=== PATIENT | male | born 1950 | race Hispanic/Latino ===

== ENCOUNTER → 2018-03-10 | Outpatient (CLI) | payer OTHER ==
[~2018-03-10] MED LIST: ALPR1TAB2 PO; AMLO5TAB7 PO; ASPI-555 PO; BETA1TAB20 PO; CYAN100022 SL; GLIP5TAB11 PO; METF-446 PO; NITR0.4T SL; RANI150T7 PO
== END | disposition home or self-care (01) ==
LOC: RAH 10:27
PROVIDERS: ATTEND Family Medicine
DX: S86.012A Strain of left Achilles tendon, initial encounter (principal); X58.XXXA Exposure to other specified factors, initial encounter; Y93.89 Activity, other specified; Y92.89 Other specified places as the place of occurrence of the external cause; Y99.8 Other external cause status
CPT/HCPCS: 73721

== ENCOUNTER 2018-09-03 23:38 | Observation (INO) | payer OTHER ==
[~2018-09-03] VITALS: Ht 170.2 cm; Wt 82.9 kg
[~2018-09-03 23:38] MED LIST changes: -AMLO5TAB7 PO; +AMLO5TAB9 PO
[2018-09-03] MEDS ORDERED: ASPIRIN 325 MG TABLET ONE (23:53)
[2018-09-03 23:59] LABS: BASOPHILS % (AUTO) 0.3 % (0.0-5.0); EOSINOPHILS % (AUTO) 2.2 % (0.0-8.0); HEMATOCRIT 46.6 % (42-54); LYMPHOCYTES % (AUTO) 8.9 % (21.0-51.0); MEAN CORPUSCULAR HEMOGLOBIN 31.5 pg (27.0-33.0); MEAN CORPUSCULAR HGB CONC 34.6 g/dL (32.0-36.0); MONOCYTES % (AUTO) 6.4 % (3.0-13.0); NEUTROPHILS % (AUTO) 82.2 % (40.0-77.0); PLATELET COUNT (AUTO) 119 K/uL (130-400); RED BLOOD CELL COUNT(AUTO) 5.11 MIL/uL (4.50-6.20); RED CELL DISTRIBUTION WIDTH 14.4 % (11.0-15.5); WHITE BLOOD COUNT (AUTO) 6.1 K/uL (4.8-10.8)
[2018-09-04 00:09] LABS: POTASSIUM 3.9 mmol/L (3.5-5.1)
[2018-09-04 00:14] LABS: ALBUMIN 3.4 g/dL (3.5-5.0); BILIRUBIN,TOTAL 0.5 mg/dL (0.2-1.0); TOTAL PROTEIN, SERUM 7.5 g/dL (6.0-8.3)
[2018-09-04] MEDS ORDERED: NITROGLYCERIN 0.4 MG SL TAB SL ONE (00:14)
[2018-09-04 00:23] LABS: INR 0.95 (0.85-1.15); PARTIAL THROMBOPLASTIN TIME 27.8 SEC (26.3-35.5)
[2018-09-04 05:06] LABS: BASOPHILS % (AUTO) 0.5 % (0.0-5.0); EOSINOPHILS % (AUTO) 2.2 % (0.0-8.0); HEMATOCRIT 42.5 % (42-54); LYMPHOCYTES % (AUTO) 9.2 % (21.0-51.0); MEAN CORPUSCULAR HEMOGLOBIN 31.7 pg (27.0-33.0); MEAN CORPUSCULAR HGB CONC 35.2 g/dL (32.0-36.0); MEAN CORPUSCULAR VOLUME 90.1 fL (79-99); MONOCYTES % (AUTO) 5.3 % (3.0-13.0); NEUTROPHILS % (AUTO) 82.8 % (40.0-77.0); PLATELET COUNT (AUTO) 109 K/uL (130-400); RED BLOOD CELL COUNT(AUTO) 4.72 MIL/uL (4.50-6.20); RED CELL DISTRIBUTION WIDTH 14.1 % (11.0-15.5); WHITE BLOOD COUNT (AUTO) 5.6 K/uL (4.8-10.8)
[2018-09-04 05:18] LABS: CREATININE 0.9 mg/dL (0.5-1.5); POTASSIUM 4.5 mmol/L (3.5-5.1)
[2018-09-04] MEDS ORDERED: ACETAMINOPHEN 325 MG TAB ONE ×2 (05:21→12:19)
[2018-09-04 05:29] LABS: CREATINE KINASE, TOTAL 240 U/L (21-232); MYOGLOBIN 118 ng/mL (10-92); TROPONIN I < 0.04 ng/mL (0.00-0.06)
[2018-09-04 05:43] LABS: B-TYPE NATRIURETIC PEPTIDE 40 pg/mL (0-100)
[2018-09-04] MEDS ORDERED: ASPIRIN 81MG TAB.CHEW ONE (09:22)
[2018-09-04] MEDS ORDERED: NITROGLYCERIN 1GM/1 INCH PACKET TD ONE (09:22)
[2018-09-04] MEDS ORDERED: METOPROLOL TARTRATE 25 MG TAB ONE (09:23)
[2018-09-04] MEDS ORDERED: SULF1TAB42 PO (10:38)
[2018-09-04] MEDS ORDERED: METO25TA6 PO (10:38)
[2018-09-04] MEDS ORDERED: MUPI22OI2 TP (10:39)
[2018-09-04] MEDS ORDERED: CEFTRIAXONE SODIUM 1 GM ONE (14:21)
[2018-09-04 15:00] VITALS: BP 121/72
[2018-09-04] MEDS ORDERED: RANI150T7 PO (15:47)
[2018-09-04 15:59] VITALS: BP 120/78
[2018-09-04] MEDS ORDERED: NITROGLYCERIN 0.4 MG SL TAB SL PRN (16:00)
--- NOTE | 2018-09-04 16:16 | NUR ---
SPOKE WITH MARIANELA RESTREPO PA-C AND INFORMED HIM OF PATIENT'S ARRIVAL TO FLOOR.
[2018-09-04] MEDS: METFORMIN HCL 500 MG TABLET PO SCH (16:26)
[2018-09-04] MEDS ORDERED: GLUCAGON 1MG KIT 1 MG ML IM PRN (16:45)
[2018-09-04] MEDS ORDERED: DEXTROSE 50%-WATER 50 ML DISP.SYRIN IV PRN (16:45)
[2018-09-04 17:49] LABS: CHOLESTEROL 104 mg/dL (<200); HDL CHOLESTEROL 28 mg/dL (29-71); LDL DIRECT 57 mg/dL (0-99); TRIGLYCERIDES 128 mg/dL (30-200)
[2018-09-04] MEDS ORDERED: INSULIN HUMULIN R 100 UNIT/ML 3ML SQ SCH (18:00)
[2018-09-04] MEDS ORDERED: NITROGLYCERIN 1GM/1 INCH PACKET TD SCH (18:00)
[2018-09-04 19:40] VITALS: BP 131/80
[2018-09-04] MEDS ORDERED: REGADENOSON 0.4 MG/5 ML PF SYG IVP SCH (19:45)
[2018-09-04] MEDS: ATORVASTATIN CALCIUM 10 MG TABLET PO SCH (21:00)
[2018-09-04] MEDS ORDERED: INSULIN R PO SS1 SQ SCH (21:00)
--- NOTE | 2018-09-04 22:10 | NUR ---
REMINDED PATIENT NPO AFTER MIDNIGHT, STRESS TEST IN A.M. PATIENT VERBALIZED UNDERSTANDING.
[2018-09-04] MEDS: SULFAMETHOX-TMP DS 800/160 TAB PO SCH (22:30)
[2018-09-04] MEDS: MUPIROCIN OINTMENT 22 GM TUBE TP SCH (22:31)
[2018-09-04] MEDS: RANITIDINE HCL 15 MG/1 ML PO SCH (22:31)
[2018-09-04] MEDS: METOPROLOL TARTRATE 25 MG TAB PO SCH (22:31)
[2018-09-04 23:34] VITALS: BP 151/91
[2018-09-05] MEDS: CEFTRIAXONE SODIUM 1 GM IVP SCH ×2 (03:39→17:07)
[2018-09-05 03:40] VITALS: BP 127/83
[2018-09-05 07:45] VITALS: BP 154/93
[2018-09-05] MEDS: GLIPIZIDE XL 5MG TAB PO SCH (07:46)
[2018-09-05] MEDS: METFORMIN HCL 500 MG TABLET PO SCH ×3 (07:46→17:08)
[2018-09-05] MEDS: METOPROLOL TARTRATE 25 MG TAB PO SCH ×2 (07:50→20:59)
[2018-09-05] MEDS: SULFAMETHOX-TMP DS 800/160 TAB PO SCH ×2 (11:32→20:58)
[2018-09-05] MEDS: RANITIDINE HCL 15 MG/1 ML PO SCH ×2 (11:32→20:57)
[2018-09-05] MEDS: MUPIROCIN OINTMENT 22 GM TUBE TP SCH ×3 (11:33→22:59)
[2018-09-05] MEDS: ASPIRIN 81 MG EC TAB PO SCH (11:33)
[2018-09-05 11:51] VITALS: BP 154/94
--- NOTE | 2018-09-05 13:13 | NUR ---
DC PLAN VISITED WITH PATIENT. PATIENT LIVES ALONE. INDEPENDENT ABLE TO PERFORM ADL'S. PATIENT HAS NO SERVICES OR DME'S. FEELS SAFE TO RETURN HOME. Addendum: 09/05/18 at 1314 by KHOI CERON RN CM Amended: Links added.
[2018-09-05 15:44] VITALS: BP 148/74
--- NOTE | 2018-09-05 15:54 | NUR ---
SPOKE WITH DR. BEARD WHO READ SADI AND SAID THAT TEST IS NORMAL.
[2018-09-05] MEDS ORDERED: ACETAMINOPHEN 325 MG TAB ONE (17:59)
[2018-09-05] MEDS ORDERED: ACETAMINOPHEN 325 MG TAB PO PRN (18:00)
[2018-09-05] MEDS ORDERED: PHARMACY COMMUNICATION MISC SCH (18:15)
[2018-09-05 19:00] VITALS: BP 129/86
[2018-09-05] MEDS: CEFEPIME HCL 1 GM VIAL IVP SCH (20:57)
[2018-09-05] MEDS: DOXYCYCLINE HYCLATE 100 MG TABLET PO SCH (20:58)
[2018-09-05] MEDS: ATORVASTATIN CALCIUM 10 MG TABLET PO SCH (20:58)
[2018-09-05 23:00] VITALS: BP 110/73
[2018-09-06 03:00] VITALS: BP 132/83
[2018-09-06] MEDS: CEFEPIME HCL 1 GM VIAL IVP SCH ×2 (04:17→11:23)
[2018-09-06 07:33] VITALS: BP 118/74
[2018-09-06] MEDS: DOXYCYCLINE HYCLATE 100 MG TABLET PO SCH (08:13)
[2018-09-06] MEDS: SULFAMETHOX-TMP DS 800/160 TAB PO SCH (08:13)
[2018-09-06] MEDS: RANITIDINE HCL 15 MG/1 ML PO SCH (08:13)
[2018-09-06] MEDS: METOPROLOL TARTRATE 25 MG TAB PO SCH (08:14)
[2018-09-06] MEDS: ASPIRIN 81 MG EC TAB PO SCH (08:14)
[2018-09-06] MEDS: METFORMIN HCL 500 MG TABLET PO SCH (08:14)
[2018-09-06] MEDS: GLIPIZIDE XL 5MG TAB PO SCH (08:14)
[2018-09-06 09:41] LABS: ALBUMIN 3.1 g/dL (3.5-5.0); BILIRUBIN,DIRECT 0.9 mg/dL (0.0-0.3); BILIRUBIN,TOTAL 1.6 mg/dL (0.2-1.0); TOTAL PROTEIN, SERUM 7.4 g/dL (6.0-8.3)
[2018-09-06] MEDS ORDERED: ATOR10 PO (10:13)
[2018-09-06] MEDS ORDERED: METO-409 PO (10:13)
[2018-09-06] MEDS ORDERED: ISOS30TA6 PO (10:13)
[2018-09-06] MEDS: MUPIROCIN OINTMENT 22 GM TUBE TP SCH ×2 (10:20→14:54)
[2018-09-06 11:34] VITALS: BP 153/87
[2018-09-06 15:19] VITALS: BP 140/82
--- NOTE | 2018-09-06 15:24 | NUR ---
GAVE PATIENT DISCHARGE INSTRUCTIONS. UPDATED PATIENT ON FOLLOW UP APPOINTMENTS WITH DR. REILLY AND PCP. PATIENT READY TO GO HOME.
== END 2018-09-06 15:54 | disposition home or self-care (01) ==
LOC: EDH 23:38 → EDHIP 09-04 01:02 → INTOOBSV 09-04 01:02 → 2DH 09-04 14:46
PROVIDERS: ADMIT Internal Medicine; ATTEND Internal Medicine
DX: I25.110 Atherosclerotic heart disease of native coronary artery with unstable angina pectoris (principal); L03.115 Cellulitis of right lower limb; I10 Essential (primary) hypertension; E78.2 Mixed hyperlipidemia; E11.9 Type 2 diabetes mellitus without complications; K76.0 Fatty (change of) liver, not elsewhere classified; N28.9 Disorder of kidney and ureter, unspecified; Z82.49 Family history of ischemic heart disease and other diseases of the circulatory system; Z83.3 Family history of diabetes mellitus; Z72.0 Tobacco use; Z79.899 Other long term (current) drug therapy
CPT/HCPCS: 36415 ×4; 71045 ×2; 76770; 78452; 80048; 80053; 80061; 80076; 82550; 82948 ×10; 83874; 83880; 84484 ×3; 85025 ×2; 85610; 85730; 87040 ×2; 87088; 87804 ×2; 93005; 93017; 96374; 96375; 96376 ×2; 99284; A4218 ×2; A9500 ×2; G0378 ×63; J0692 ×3; J0696 ×2; J2785

== ENCOUNTER → 2019-02-16 | Outpatient (CLI) | payer OTHER ==
[~2019-02-16] MED LIST changes: -ALPR1TAB2 PO; -AMLO5TAB9 PO; +ATOR10 PO; -BETA1TAB20 PO; -CYAN100022 SL; +ISOS30TA6 PO; +METO-409 PO; +MUPI22OI2 TP; +SULF1TAB42 PO
[2019-02-16 13:54] LABS: CREATININE 1.5 mg/dL (0.5-1.5)
== END | disposition home or self-care (01) ==
LOC: LAB 13:03
PROVIDERS: ATTEND Family Medicine
DX: I25.10 Atherosclerotic heart disease of native coronary artery without angina pectoris (principal); I15.0 Renovascular hypertension
CPT/HCPCS: 36415; 82565; 84520

== ENCOUNTER 2019-02-17 08:00 | Day surgery (SDC) | payer OTHER ==
--- NOTE | 2019-02-17 08:50 | NUR ---
PATIENT ARRIVED PATIENT BROUGHT TO DAY PATIENT FROM RADIOLOGY BY GERMAINE. PATIENT ACCOMPANIED BY SPOUSE. PATIENT AAOX3, RESPIRATIONS UNLABORED, VITAL SIGNS STABLE. EXPLAINED TO THAT HE WILL BE RECEIVING IV HYDRATION FOR [address] SCAN WILL BE DONE. PATIENT VERBALIZED UNDERSTANDING. ORIENTED TO HOSPITAL ROUTINE. BED IN LOWEST POSITION, SIDERAILS UP X2, CALL LIVE IN REACH.
[2019-02-17 09:00] VITALS: BP 142/85
[2019-02-17] MEDS ORDERED: SODIUM CHLORIDE 0.9% 1000ML 1,000 ML IV SCH (09:00)
[2019-02-17] MEDS ORDERED: SODIUM CHLORIDE 0.9% 1000ML 1,000 ML IV ONE (09:33)
[2019-02-17] MEDS ORDERED: IOHEXOL 350 MG/ML 100ML INFUS..BTL IV ONE (09:50)
[2019-02-17 10:00] VITALS: BP 135/78
--- NOTE | 2019-02-17 10:30 | NUR ---
PATIENT TRANSFERRED PATIENT TAKEN TO RADIOLOGY VIA WHEELCHAIR BY
--- NOTE | 2019-02-17 11:05 | NUR ---
patient returned PATIENT BROUGHT BACK FROM RADIOLOGY BY GERMAINE. PATIENT AAOX3, VITAL SIGNS STABLE. AT BEDSIDE.
--- NOTE | 2019-02-17 14:05 | NUR ---
DISCHARGE INSTRUCTIONS DISCHARGE INSTRUCTIONS PROVIDED TO PATIENT AND PATIENT'S SPOUSE. BOTH VERBALIZED UNDERSTANDING. ALL QUESTIONS/CONCERNS ADDRESSED.
--- NOTE | 2019-02-17 14:15 | NUR ---
PATIENT DISCHARGED PATIENT DISCHARGED FROM FACILITY, PATIENT TAKEN TO PRIVATE VEHICLE VIA WHEELCHAIR BY NATHAN CARLOS.
== END 2019-02-17 14:15 ==
LOC: DAH 08:00 → EDSTATUS 08:00 → DAH 14:15
PROVIDERS: ATTEND Internal Medicine Cardiovascular Disease
DX: I15.0 Renovascular hypertension (principal); I25.10 Atherosclerotic heart disease of native coronary artery without angina pectoris; K40.20 Bilateral inguinal hernia, without obstruction or gangrene, not specified as recurrent
CPT/HCPCS: 74174; A4215; A4216; A4221; A4222; A4223 ×3; A4606; J7030; Q9967; 96360; 96361

== ENCOUNTER → 2020-02-25 | Outpatient (CLI) | payer OTHER ==
[~2020-02-25] MED LIST changes: +ACET-2743 PO; +AMLO5TAB9 PO; +ASCO500C18 PO; -ASPI-555 PO; +ASPI-556 PO; -ATOR10 PO; +CALC-1017 PO; +CLON0.2T PO; +CLOTRIMAZOLE SD; +CYAN500T63 PO; +DEXT1DRO8 OU; +FLUT15.845 NS; -ISOS30TA6 PO; +LOSA50TA64 PO; +MULT-30 PO; -MUPI22OI2 TP; -RANI150T7 PO; -SULF1TAB42 PO; +VIT1CAPS28 PO
== END | disposition home or self-care (01) ==
LOC: WHH 09:00
PROVIDERS: ATTEND Surgery
DX: T81.89XA Other complications of procedures, not elsewhere classified, initial encounter (principal); L97.821 Non-pressure chronic ulcer of other part of left lower leg limited to breakdown of skin; L02.416 Cutaneous abscess of left lower limb; E11.22 Type 2 diabetes mellitus with diabetic chronic kidney disease; I12.9 Hypertensive chronic kidney disease with stage 1 through stage 4 chronic kidney disease, or unspecified chronic kidney disease; N18.2 Chronic kidney disease, stage 2 (mild); E11.311 Type 2 diabetes mellitus with unspecified diabetic retinopathy with macular edema; K21.9 Gastro-esophageal reflux disease without esophagitis; M19.90 Unspecified osteoarthritis, unspecified site; F41.9 Anxiety disorder, unspecified; Z79.01 Long term (current) use of anticoagulants; Z79.82 Long term (current) use of aspirin; Z79.899 Other long term (current) drug therapy; Z88.1 Allergy status to other antibiotic agents; Y83.8 Other surgical procedures as the cause of abnormal reaction of the patient, or of later complication, without mention of misadventure at the time of the procedure; Y92.238 Other place in hospital as the place of occurrence of the external cause
CPT/HCPCS: 97605; A6021; G0463

== ENCOUNTER → 2020-03-03 | Outpatient (CLI) | payer OTHER ==
[~2020-03-03] MED LIST changes: +GENTAMICIN SULFATE 15 GM CREAM.GM. TP ONE
== END | disposition home or self-care (01) ==
LOC: WHH 08:17
PROVIDERS: ATTEND Family Medicine
DX: T81.31XD Disruption of external operation (surgical) wound, not elsewhere classified, subsequent encounter (principal); E11.622 Type 2 diabetes mellitus with other skin ulcer; L97.825 Non-pressure chronic ulcer of other part of left lower leg with muscle involvement without evidence of necrosis; L02.416 Cutaneous abscess of left lower limb; E11.22 Type 2 diabetes mellitus with diabetic chronic kidney disease; I12.9 Hypertensive chronic kidney disease with stage 1 through stage 4 chronic kidney disease, or unspecified chronic kidney disease; N18.2 Chronic kidney disease, stage 2 (mild); E11.311 Type 2 diabetes mellitus with unspecified diabetic retinopathy with macular edema; K21.9 Gastro-esophageal reflux disease without esophagitis; M19.90 Unspecified osteoarthritis, unspecified site; F41.9 Anxiety disorder, unspecified; Z79.01 Long term (current) use of anticoagulants; Z79.82 Long term (current) use of aspirin; Z79.899 Other long term (current) drug therapy; Z88.1 Allergy status to other antibiotic agents; Y83.8 Other surgical procedures as the cause of abnormal reaction of the patient, or of later complication, without mention of misadventure at the time of the procedure
CPT/HCPCS: 87070; 87077; 87186; G0463

== ENCOUNTER → 2020-03-10 | Outpatient (CLI) | payer OTHER ==
[~2020-03-10] MED LIST changes: -GENTAMICIN SULFATE 15 GM CREAM.GM. TP ONE; +LIDOCAINE HCL 4% LTA SOL 4 ML VIAL TP ONE
== END | disposition home or self-care (01) ==
LOC: WHH 08:00
PROVIDERS: ATTEND Family Medicine
DX: T81.31XD Disruption of external operation (surgical) wound, not elsewhere classified, subsequent encounter (principal); E11.622 Type 2 diabetes mellitus with other skin ulcer; L97.825 Non-pressure chronic ulcer of other part of left lower leg with muscle involvement without evidence of necrosis; L02.416 Cutaneous abscess of left lower limb; E11.22 Type 2 diabetes mellitus with diabetic chronic kidney disease; I12.9 Hypertensive chronic kidney disease with stage 1 through stage 4 chronic kidney disease, or unspecified chronic kidney disease; N18.2 Chronic kidney disease, stage 2 (mild); E11.311 Type 2 diabetes mellitus with unspecified diabetic retinopathy with macular edema; K21.9 Gastro-esophageal reflux disease without esophagitis; M19.90 Unspecified osteoarthritis, unspecified site; F41.9 Anxiety disorder, unspecified; Z79.01 Long term (current) use of anticoagulants; Z79.82 Long term (current) use of aspirin; Z79.899 Other long term (current) drug therapy; Z88.1 Allergy status to other antibiotic agents; Y83.8 Other surgical procedures as the cause of abnormal reaction of the patient, or of later complication, without mention of misadventure at the time of the procedure
CPT/HCPCS: 73560; G0463

== ENCOUNTER → 2020-03-10 | Outpatient (CLI) | payer OTHER ==
[~2020-03-10] MED LIST changes: -LIDOCAINE HCL 4% LTA SOL 4 ML VIAL TP ONE
== END | disposition home or self-care (01) ==
LOC: RAH 12:13
PROVIDERS: ATTEND Family Medicine
DX: M17.12 Unilateral primary osteoarthritis, left knee (principal); L02.416 Cutaneous abscess of left lower limb
CPT/HCPCS: 73560

== ENCOUNTER → 2020-03-17 | Outpatient (CLI) | payer OTHER | END | disposition home or self-care (01) | LOC: WHH 08:00 | PROVIDERS: ATTEND Family Medicine | DX: T81.31XD Disruption of external operation (surgical) wound, not elsewhere classified, subsequent encounter (principal); E11.622 Type 2 diabetes mellitus with other skin ulcer; L97.825 Non-pressure chronic ulcer of other part of left lower leg with muscle involvement without evidence of necrosis; L02.416 Cutaneous abscess of left lower limb; E11.22 Type 2 diabetes mellitus with diabetic chronic kidney disease; I12.9 Hypertensive chronic kidney disease with stage 1 through stage 4 chronic kidney disease, or unspecified chronic kidney disease; N18.2 Chronic kidney disease, stage 2 (mild); E11.311 Type 2 diabetes mellitus with unspecified diabetic retinopathy with macular edema; K21.9 Gastro-esophageal reflux disease without esophagitis; M17.12 Unilateral primary osteoarthritis, left knee; F41.9 Anxiety disorder, unspecified; Z79.01 Long term (current) use of anticoagulants; Z79.82 Long term (current) use of aspirin; Z79.899 Other long term (current) drug therapy; Z88.1 Allergy status to other antibiotic agents; Y83.8 Other surgical procedures as the cause of abnormal reaction of the patient, or of later complication, without mention of misadventure at the time of the procedure | CPT/HCPCS: 11043 ==

== ENCOUNTER → 2020-03-22 | Outpatient (CLI) | payer OTHER ==
[~2020-03-22] MED LIST changes: +GADODIAMIDE 10 MMOL/20 ML VIAL IV ONE
== END | disposition home or self-care (01) ==
LOC: RAH 09:30
PROVIDERS: ATTEND Family Medicine
DX: L97.825 Non-pressure chronic ulcer of other part of left lower leg with muscle involvement without evidence of necrosis (principal); M79.89 Other specified soft tissue disorders
CPT/HCPCS: 73723; A9579

== ENCOUNTER → 2020-03-24 | Outpatient (CLI) | payer OTHER ==
[~2020-03-24] MED LIST changes: -GADODIAMIDE 10 MMOL/20 ML VIAL IV ONE; +LIDOCAINE HCL 4% LTA SOL 4 ML VIAL TP ONE
== END | disposition home or self-care (01) ==
LOC: WHH 08:00
PROVIDERS: ATTEND Family Medicine
DX: T81.31XD Disruption of external operation (surgical) wound, not elsewhere classified, subsequent encounter (principal); E11.622 Type 2 diabetes mellitus with other skin ulcer; L97.825 Non-pressure chronic ulcer of other part of left lower leg with muscle involvement without evidence of necrosis; L02.416 Cutaneous abscess of left lower limb; E11.22 Type 2 diabetes mellitus with diabetic chronic kidney disease; I12.9 Hypertensive chronic kidney disease with stage 1 through stage 4 chronic kidney disease, or unspecified chronic kidney disease; N18.2 Chronic kidney disease, stage 2 (mild); E11.311 Type 2 diabetes mellitus with unspecified diabetic retinopathy with macular edema; K21.9 Gastro-esophageal reflux disease without esophagitis; M17.12 Unilateral primary osteoarthritis, left knee; F41.9 Anxiety disorder, unspecified; Z79.01 Long term (current) use of anticoagulants; Z79.82 Long term (current) use of aspirin; Z79.899 Other long term (current) drug therapy; Z88.1 Allergy status to other antibiotic agents; Y83.8 Other surgical procedures as the cause of abnormal reaction of the patient, or of later complication, without mention of misadventure at the time of the procedure
CPT/HCPCS: A6197; G0463

== ENCOUNTER → 2020-03-31 | Outpatient (CLI) | payer OTHER ==
[~2020-03-31] MED LIST changes: +LIDOCAINE HCL 2% JELLY 5 ML TP ONE; -LIDOCAINE HCL 4% LTA SOL 4 ML VIAL TP ONE
== END | disposition home or self-care (01) ==
LOC: WHH 08:00
PROVIDERS: ATTEND Family Medicine
DX: T81.31XD Disruption of external operation (surgical) wound, not elsewhere classified, subsequent encounter (principal); E11.622 Type 2 diabetes mellitus with other skin ulcer; L97.825 Non-pressure chronic ulcer of other part of left lower leg with muscle involvement without evidence of necrosis; L02.416 Cutaneous abscess of left lower limb; E11.22 Type 2 diabetes mellitus with diabetic chronic kidney disease; I12.9 Hypertensive chronic kidney disease with stage 1 through stage 4 chronic kidney disease, or unspecified chronic kidney disease; N18.2 Chronic kidney disease, stage 2 (mild); E11.311 Type 2 diabetes mellitus with unspecified diabetic retinopathy with macular edema; K21.9 Gastro-esophageal reflux disease without esophagitis; M17.12 Unilateral primary osteoarthritis, left knee; F41.9 Anxiety disorder, unspecified; Z79.01 Long term (current) use of anticoagulants; Z79.82 Long term (current) use of aspirin; Z79.899 Other long term (current) drug therapy; Z88.1 Allergy status to other antibiotic agents; Y83.8 Other surgical procedures as the cause of abnormal reaction of the patient, or of later complication, without mention of misadventure at the time of the procedure
CPT/HCPCS: 17250

== ENCOUNTER → 2020-04-05 | Outpatient (CLI) | payer OTHER ==
[~2020-04-05] MED LIST changes: +AMLO-257 PO; -AMLO5TAB9 PO; -LIDOCAINE HCL 2% JELLY 5 ML TP ONE
== END | disposition home or self-care (01) ==
LOC: SHCH 12:55
PROVIDERS: ATTEND Internal Medicine Cardiovascular Disease
DX: I73.9 Peripheral vascular disease, unspecified (principal)
CPT/HCPCS: 93925

== ENCOUNTER → 2020-04-07 | Outpatient (CLI) | payer OTHER ==
[~2020-04-07] MED LIST changes: +LIDOCAINE HCL 4% LTA SOL 4 ML VIAL TP ONE; +SILVER NITRATE APPLICATOR 1 SWAB TP ONE
== END | disposition home or self-care (01) ==
LOC: WHH 08:00
PROVIDERS: ATTEND Family Medicine
DX: T81.31XD Disruption of external operation (surgical) wound, not elsewhere classified, subsequent encounter (principal); E11.622 Type 2 diabetes mellitus with other skin ulcer; L97.825 Non-pressure chronic ulcer of other part of left lower leg with muscle involvement without evidence of necrosis; L02.416 Cutaneous abscess of left lower limb; E11.22 Type 2 diabetes mellitus with diabetic chronic kidney disease; I12.9 Hypertensive chronic kidney disease with stage 1 through stage 4 chronic kidney disease, or unspecified chronic kidney disease; N18.2 Chronic kidney disease, stage 2 (mild); E11.311 Type 2 diabetes mellitus with unspecified diabetic retinopathy with macular edema; K21.9 Gastro-esophageal reflux disease without esophagitis; M17.12 Unilateral primary osteoarthritis, left knee; F41.9 Anxiety disorder, unspecified; Z79.01 Long term (current) use of anticoagulants; Z79.82 Long term (current) use of aspirin; Z79.899 Other long term (current) drug therapy; Z88.1 Allergy status to other antibiotic agents; Y83.8 Other surgical procedures as the cause of abnormal reaction of the patient, or of later complication, without mention of misadventure at the time of the procedure
CPT/HCPCS: 17250

== ENCOUNTER → 2020-04-14 | Outpatient (CLI) | payer OTHER ==
[~2020-04-14] MED LIST changes: -LIDOCAINE HCL 4% LTA SOL 4 ML VIAL TP ONE; -SILVER NITRATE APPLICATOR 1 SWAB TP ONE
== END | disposition home or self-care (01) ==
LOC: WHH 08:00
PROVIDERS: ATTEND Family Medicine
DX: T81.31XD Disruption of external operation (surgical) wound, not elsewhere classified, subsequent encounter (principal); E11.622 Type 2 diabetes mellitus with other skin ulcer; L97.825 Non-pressure chronic ulcer of other part of left lower leg with muscle involvement without evidence of necrosis; L02.416 Cutaneous abscess of left lower limb; E11.22 Type 2 diabetes mellitus with diabetic chronic kidney disease; I12.9 Hypertensive chronic kidney disease with stage 1 through stage 4 chronic kidney disease, or unspecified chronic kidney disease; N18.2 Chronic kidney disease, stage 2 (mild); E11.311 Type 2 diabetes mellitus with unspecified diabetic retinopathy with macular edema; K21.9 Gastro-esophageal reflux disease without esophagitis; M17.12 Unilateral primary osteoarthritis, left knee; F41.9 Anxiety disorder, unspecified; Z79.01 Long term (current) use of anticoagulants; Z79.82 Long term (current) use of aspirin; Z79.899 Other long term (current) drug therapy; Z88.1 Allergy status to other antibiotic agents; Y83.8 Other surgical procedures as the cause of abnormal reaction of the patient, or of later complication, without mention of misadventure at the time of the procedure
CPT/HCPCS: G0463

== ENCOUNTER → 2020-04-21 | Outpatient (CLI) | payer OTHER ==
[~2020-04-21] MED LIST changes: +LIDOCAINE HCL 2% JELLY 5 ML TP ONE
== END | disposition home or self-care (01) ==
LOC: WHH 08:00
PROVIDERS: ATTEND Family Medicine
DX: T81.31XD Disruption of external operation (surgical) wound, not elsewhere classified, subsequent encounter (principal); E11.622 Type 2 diabetes mellitus with other skin ulcer; L97.825 Non-pressure chronic ulcer of other part of left lower leg with muscle involvement without evidence of necrosis; L02.416 Cutaneous abscess of left lower limb; E11.22 Type 2 diabetes mellitus with diabetic chronic kidney disease; I12.9 Hypertensive chronic kidney disease with stage 1 through stage 4 chronic kidney disease, or unspecified chronic kidney disease; N18.2 Chronic kidney disease, stage 2 (mild); E11.311 Type 2 diabetes mellitus with unspecified diabetic retinopathy with macular edema; K21.9 Gastro-esophageal reflux disease without esophagitis; M17.12 Unilateral primary osteoarthritis, left knee; F41.9 Anxiety disorder, unspecified; Z79.01 Long term (current) use of anticoagulants; Z79.82 Long term (current) use of aspirin; Z79.899 Other long term (current) drug therapy; Z88.1 Allergy status to other antibiotic agents; Y83.8 Other surgical procedures as the cause of abnormal reaction of the patient, or of later complication, without mention of misadventure at the time of the procedure
CPT/HCPCS: G0463

== ENCOUNTER → 2020-04-28 | Outpatient (CLI) | payer OTHER | END | disposition home or self-care (01) | LOC: WHH 08:00 | PROVIDERS: ATTEND Family Medicine | DX: T81.31XD Disruption of external operation (surgical) wound, not elsewhere classified, subsequent encounter (principal); E11.622 Type 2 diabetes mellitus with other skin ulcer; L97.825 Non-pressure chronic ulcer of other part of left lower leg with muscle involvement without evidence of necrosis; L02.416 Cutaneous abscess of left lower limb; E11.22 Type 2 diabetes mellitus with diabetic chronic kidney disease; I12.9 Hypertensive chronic kidney disease with stage 1 through stage 4 chronic kidney disease, or unspecified chronic kidney disease; N18.2 Chronic kidney disease, stage 2 (mild); E11.311 Type 2 diabetes mellitus with unspecified diabetic retinopathy with macular edema; K21.9 Gastro-esophageal reflux disease without esophagitis; M17.12 Unilateral primary osteoarthritis, left knee; F41.9 Anxiety disorder, unspecified; Z79.01 Long term (current) use of anticoagulants; Z79.82 Long term (current) use of aspirin; Z79.899 Other long term (current) drug therapy; Z88.1 Allergy status to other antibiotic agents; Y83.8 Other surgical procedures as the cause of abnormal reaction of the patient, or of later complication, without mention of misadventure at the time of the procedure | CPT/HCPCS: A6196; G0463 ==

== ENCOUNTER → 2020-05-05 | Outpatient (CLI) | payer OTHER ==
[~2020-05-05] MED LIST changes: -LIDOCAINE HCL 2% JELLY 5 ML TP ONE
== END | disposition home or self-care (01) ==
LOC: WHH 08:00
PROVIDERS: ATTEND Family Medicine
DX: T81.31XD Disruption of external operation (surgical) wound, not elsewhere classified, subsequent encounter (principal); E11.622 Type 2 diabetes mellitus with other skin ulcer; L97.825 Non-pressure chronic ulcer of other part of left lower leg with muscle involvement without evidence of necrosis; L02.416 Cutaneous abscess of left lower limb; E11.22 Type 2 diabetes mellitus with diabetic chronic kidney disease; I12.9 Hypertensive chronic kidney disease with stage 1 through stage 4 chronic kidney disease, or unspecified chronic kidney disease; N18.2 Chronic kidney disease, stage 2 (mild); E11.311 Type 2 diabetes mellitus with unspecified diabetic retinopathy with macular edema; K21.9 Gastro-esophageal reflux disease without esophagitis; M17.12 Unilateral primary osteoarthritis, left knee; F41.9 Anxiety disorder, unspecified; Z79.01 Long term (current) use of anticoagulants; Z79.82 Long term (current) use of aspirin; Z79.899 Other long term (current) drug therapy; Z88.1 Allergy status to other antibiotic agents; Y83.8 Other surgical procedures as the cause of abnormal reaction of the patient, or of later complication, without mention of misadventure at the time of the procedure
CPT/HCPCS: G0463

== ENCOUNTER → 2020-05-12 | Outpatient (CLI) | payer OTHER ==
[~2020-05-12] MED LIST changes: +LIDOCAINE HCL 2% JELLY 5 ML TP ONE
== END | disposition home or self-care (01) ==
LOC: WHH 08:00
PROVIDERS: ATTEND Family Medicine
DX: T81.31XD Disruption of external operation (surgical) wound, not elsewhere classified, subsequent encounter (principal); E11.622 Type 2 diabetes mellitus with other skin ulcer; L97.822 Non-pressure chronic ulcer of other part of left lower leg with fat layer exposed; E11.22 Type 2 diabetes mellitus with diabetic chronic kidney disease; I12.9 Hypertensive chronic kidney disease with stage 1 through stage 4 chronic kidney disease, or unspecified chronic kidney disease; N18.2 Chronic kidney disease, stage 2 (mild); E11.311 Type 2 diabetes mellitus with unspecified diabetic retinopathy with macular edema; K21.9 Gastro-esophageal reflux disease without esophagitis; M17.12 Unilateral primary osteoarthritis, left knee; F41.9 Anxiety disorder, unspecified; Z79.01 Long term (current) use of anticoagulants; Z79.82 Long term (current) use of aspirin; Z79.899 Other long term (current) drug therapy; Z88.1 Allergy status to other antibiotic agents; Y83.8 Other surgical procedures as the cause of abnormal reaction of the patient, or of later complication, without mention of misadventure at the time of the procedure
CPT/HCPCS: G0463

== ENCOUNTER → 2020-05-17 | Outpatient (CLI) | payer OTHER ==
[~2020-05-17] MED LIST changes: +GENTAMICIN SULFATE 15 GM CREAM.GM. TP ONE
== END | disposition home or self-care (01) ==
LOC: WHH 08:00
PROVIDERS: ATTEND Family Medicine
DX: T81.31XD Disruption of external operation (surgical) wound, not elsewhere classified, subsequent encounter (principal); E11.622 Type 2 diabetes mellitus with other skin ulcer; L97.822 Non-pressure chronic ulcer of other part of left lower leg with fat layer exposed; E11.22 Type 2 diabetes mellitus with diabetic chronic kidney disease; I12.9 Hypertensive chronic kidney disease with stage 1 through stage 4 chronic kidney disease, or unspecified chronic kidney disease; N18.2 Chronic kidney disease, stage 2 (mild); E11.311 Type 2 diabetes mellitus with unspecified diabetic retinopathy with macular edema; K21.9 Gastro-esophageal reflux disease without esophagitis; M17.12 Unilateral primary osteoarthritis, left knee; F41.9 Anxiety disorder, unspecified; Z79.01 Long term (current) use of anticoagulants; Z79.82 Long term (current) use of aspirin; Z79.899 Other long term (current) drug therapy; Z88.1 Allergy status to other antibiotic agents; Y83.8 Other surgical procedures as the cause of abnormal reaction of the patient, or of later complication, without mention of misadventure at the time of the procedure
CPT/HCPCS: 87070; G0463

== ENCOUNTER → 2020-05-26 | Outpatient (CLI) | payer OTHER ==
[~2020-05-26] MED LIST changes: -CYAN500T63 PO; +CYAN500T65 PO; -GENTAMICIN SULFATE 15 GM CREAM.GM. TP ONE
== END | disposition home or self-care (01) ==
LOC: WHH 08:00
PROVIDERS: ATTEND Family Medicine
DX: T81.31XD Disruption of external operation (surgical) wound, not elsewhere classified, subsequent encounter (principal); E11.622 Type 2 diabetes mellitus with other skin ulcer; L97.822 Non-pressure chronic ulcer of other part of left lower leg with fat layer exposed; E11.22 Type 2 diabetes mellitus with diabetic chronic kidney disease; I12.9 Hypertensive chronic kidney disease with stage 1 through stage 4 chronic kidney disease, or unspecified chronic kidney disease; N18.2 Chronic kidney disease, stage 2 (mild); E11.311 Type 2 diabetes mellitus with unspecified diabetic retinopathy with macular edema; K21.9 Gastro-esophageal reflux disease without esophagitis; M17.12 Unilateral primary osteoarthritis, left knee; F41.9 Anxiety disorder, unspecified; Z79.01 Long term (current) use of anticoagulants; Z79.82 Long term (current) use of aspirin; Z79.899 Other long term (current) drug therapy; Z88.1 Allergy status to other antibiotic agents; Y83.8 Other surgical procedures as the cause of abnormal reaction of the patient, or of later complication, without mention of misadventure at the time of the procedure
CPT/HCPCS: 87070; G0463

== ENCOUNTER → 2020-06-02 | Outpatient (CLI) | payer OTHER ==
[~2020-06-02] MED LIST changes: -LIDOCAINE HCL 2% JELLY 5 ML TP ONE
== END | disposition home or self-care (01) ==
LOC: WHH 08:00
PROVIDERS: ATTEND Family Medicine
DX: T81.31XD Disruption of external operation (surgical) wound, not elsewhere classified, subsequent encounter (principal); E11.622 Type 2 diabetes mellitus with other skin ulcer; L97.828 Non-pressure chronic ulcer of other part of left lower leg with other specified severity; E11.22 Type 2 diabetes mellitus with diabetic chronic kidney disease; I12.9 Hypertensive chronic kidney disease with stage 1 through stage 4 chronic kidney disease, or unspecified chronic kidney disease; N18.2 Chronic kidney disease, stage 2 (mild); E11.311 Type 2 diabetes mellitus with unspecified diabetic retinopathy with macular edema; K21.9 Gastro-esophageal reflux disease without esophagitis; M17.12 Unilateral primary osteoarthritis, left knee; F41.9 Anxiety disorder, unspecified; Z79.01 Long term (current) use of anticoagulants; Z79.82 Long term (current) use of aspirin; Z79.899 Other long term (current) drug therapy; Z88.1 Allergy status to other antibiotic agents; Y83.8 Other surgical procedures as the cause of abnormal reaction of the patient, or of later complication, without mention of misadventure at the time of the procedure
CPT/HCPCS: G0463

== ENCOUNTER → 2020-07-21 | Outpatient (CLI) | payer OTHER ==
[~2020-07-21] MED LIST changes: -CYAN500T65 PO; +CYAN500T9 PO
== END | disposition home or self-care (01) ==
LOC: RAH 13:45
PROVIDERS: ATTEND Family Medicine
DX: N28.1 Cyst of kidney, acquired (principal); K40.90 Unilateral inguinal hernia, without obstruction or gangrene, not specified as recurrent; I25.10 Atherosclerotic heart disease of native coronary artery without angina pectoris
CPT/HCPCS: 74176

== ENCOUNTER 2020-11-04 08:15 | Day surgery (SDC) | payer OTHER ==
[2020-11-01 13:00] LABS: BASOPHILS % (AUTO) 0.3 % (0.0-5.0); EOSINOPHILS % (AUTO) 2.1 % (0.0-8.0); HEMATOCRIT 43.3 % (42-54); LYMPHOCYTES % (AUTO) 31.1 % (21.0-51.0); MEAN CORPUSCULAR HEMOGLOBIN 29.2 pg (27.0-33.0); MEAN CORPUSCULAR HGB CONC 34.2 g/dL (32.0-36.0); MEAN CORPUSCULAR VOLUME 85.4 fL (79-99); MONOCYTES % (AUTO) 9.4 % (3.0-13.0); NEUTROPHILS % (AUTO) 56.9 % (40.0-77.0); PLATELET COUNT (AUTO) 160 K/uL (130-400); RED BLOOD CELL COUNT(AUTO) 5.07 MIL/uL (4.50-6.20); RED CELL DISTRIBUTION WIDTH 13.8 % (11.0-15.5); WHITE BLOOD COUNT (AUTO) 5.9 K/uL (4.8-10.8)
[2020-11-01 13:09] LABS: CREATININE 1.2 mg/dL (0.5-1.5); POTASSIUM 4.1 mmol/L (3.5-5.1)
[2020-11-01 13:09] LABS: APPEARANCE,URINE Clear (CLEAR); BILIRUBIN,URINE Small (NEGATIVE); COLOR,URINE Dark Yellow (YELLOW); GLUCOSE, URINE (UA) TRACE mg/dL (NEGATIVE); KETONES,URINE Trace mg/dL (NEGATIVE); LEUKOCYTE ESTERASE ,URINE Negative (NEGATIVE); NITRATE,URINE Negative (NEGATIVE); OCCULT BLOOD,URINE Negative (NEGATIVE); PH,URINE 5.5 (5.0-8.0); PROTEIN,URINE 300 mg/dL (NEGATIVE)
[2020-11-01 13:11] LABS: PROTHROMBIN TIME 10.9 SEC (9.6-11.6)
[2020-11-01 13:13] LABS: PARTIAL THROMBOPLASTIN TIME 25.9 SEC (26.3-35.5)
[2020-11-01 13:23] LABS: BACTERIA,URINE None Seen /HPF (None Seen); MUCUS,URINE Moderate LPF (None Seen); RBC,URINE 0-1 /HPF (0-1); SQUAMOUS EPITHELIAL CELL,UR 0-2 /HPF (0-2); WBC,URINE None Seen /HPF (0-1)
[2020-11-03 09:19] VITALS: BP 126/72
[~2020-11-04] VITALS: Ht 170.2 cm; Wt 81.6 kg
[2020-11-04] VITALS (9 sets, daily range): BP systolic 14–163; BP diastolic 77–90
[~2020-11-04 08:15] MED LIST changes: -ASCO500C18 PO; -CALC-1017 PO; +CLON0.1T PO; -CLON0.2T PO; -CLOTRIMAZOLE SD; -CYAN500T9 PO; -DEXT1DRO8 OU; -FLUT15.845 NS; -MULT-30 PO; +ROSU5TAB12 PO; +SODIUM CHLORIDE 0.9% 500ML 500 ML IV SCH
[2020-11-04] MEDS ORDERED: SODIUM CHLORIDE 0.9% 1000ML 1,000 ML IV ONE (08:26)
[2020-11-04] MEDS ORDERED: NITROGLYCERIN 2 MG/VIAL VIAL IV ONE (12:56)
[2020-11-04] MEDS ORDERED: SODIUM BICARB 50MEQ 50ML VIAL 50 ML ONE (12:56)
[2020-11-04] MEDS ORDERED: IOHEXOL 350 MG/ML 100ML INFUS..BTL IV ONE (12:56)
[2020-11-04] MEDS ORDERED: LIDOCAINE HCL 2% 20ML ONE (12:56)
[2020-11-04] MEDS ORDERED: IOHEXOL-350 50ML VIAL IV ONE (12:56)
[2020-11-04] MEDS ORDERED: HEPARIN SODIUM 1000UNIT/ML 10ML VIAL ONE (12:56)
[2020-11-04] MEDS ORDERED: MIDAZOLAM HCL 1 MG/ML 2ML VIAL ONE (13:15)
[2020-11-04] MEDS ORDERED: MEPERIDINE-PF 25 MG/ML SYG ONE (13:16)
[2020-11-04] MEDS ORDERED: ATROPINE SULFATE 0.1 MG/ML 10 ML SYG IVP ONE (13:18)
[2020-11-04] MEDS ORDERED: SODIUM CHLORIDE 0.9% 1000ML 1,000 ML IV SCH (14:00)
[2020-11-04] MEDS ORDERED: GLUCAGON 1MG KIT 1 MG ML IM PRN (14:00)
[2020-11-04] MEDS ORDERED: DEXTROSE 50%-WATER 50 ML DISP.SYRIN IV PRN (14:00)
[2020-11-04] MEDS ORDERED: INSULIN HUMULIN R 100 UNIT/ML 3ML SQ SCH (16:30)
== END 2020-11-04 18:20 | disposition home or self-care (01) ==
LOC: DAH 08:15
PROVIDERS: ATTEND Internal Medicine Cardiovascular Disease
DX: I25.119 Atherosclerotic heart disease of native coronary artery with unspecified angina pectoris (principal); E11.9 Type 2 diabetes mellitus without complications; I10 Essential (primary) hypertension; E78.5 Hyperlipidemia, unspecified; K21.9 Gastro-esophageal reflux disease without esophagitis; F41.9 Anxiety disorder, unspecified; Z79.82 Long term (current) use of aspirin; Z79.84 Long term (current) use of oral hypoglycemic drugs; Z79.01 Long term (current) use of anticoagulants; Z79.899 Other long term (current) drug therapy; Z98.890 Other specified postprocedural states
CPT/HCPCS: 36415; 71045; 80048; 81001; 82948 ×2; 85025; 85610; 85730; 93005; 93458; 93567; A4215; A4216; A4221; A4222; A4223 ×3; A4606; A4663; C1760; C1894; J0461; J1644; J2175; J2250; J3490 ×3; J7030; Q9965; Q9967 ×2; 96360; 96361; 99156; 99157

== ENCOUNTER → 2020-11-15 | Outpatient (CLI) | payer OTHER ==
[~2020-11-15] MED LIST changes: +GADOTERATE MEGLUMINE 10 MMOL/20 ML VIAL IV ONE; -SODIUM CHLORIDE 0.9% 500ML 500 ML IV SCH
== END | disposition home or self-care (01) ==
LOC: RAH 07:43
PROVIDERS: ATTEND Internal Medicine Gastroenterology
DX: R10.32 Left lower quadrant pain (principal); N28.1 Cyst of kidney, acquired
CPT/HCPCS: 72197; 74183; A9575

== ENCOUNTER → 2020-12-12 | Outpatient (CLI) | payer OTHER ==
[~2020-12-12] MED LIST changes: -GADOTERATE MEGLUMINE 10 MMOL/20 ML VIAL IV ONE
== END | disposition home or self-care (01) ==
LOC: RAH 13:37
PROVIDERS: ATTEND Family Medicine
DX: K40.90 Unilateral inguinal hernia, without obstruction or gangrene, not specified as recurrent (principal); M79.89 Other specified soft tissue disorders
CPT/HCPCS: 76882

== ENCOUNTER → 2021-12-14 | Outpatient (CLI) | payer OTHER | END | disposition home or self-care (01) | LOC: SHCH 12:27 | PROVIDERS: ATTEND Internal Medicine Cardiovascular Disease | DX: I37.1 Nonrheumatic pulmonary valve insufficiency (principal); I65.23 Occlusion and stenosis of bilateral carotid arteries; R09.89 Other specified symptoms and signs involving the circulatory and respiratory systems; I11.9 Hypertensive heart disease without heart failure; I51.0 Cardiac septal defect, acquired | CPT/HCPCS: 93306; 93880 ==

== ENCOUNTER → 2022-07-04 | Outpatient (CLI) | payer OTHER ==
[2022-07-04 16:23] LABS: BASOPHILS % (AUTO) 0.2 % (0.0-5.0); EOSINOPHILS % (AUTO) 2.7 % (0.0-8.0); HEMATOCRIT 43.2 % (42-54); LYMPHOCYTES % (AUTO) 35.6 % (21.0-51.0); MEAN CORPUSCULAR HEMOGLOBIN 30.5 pg (27.0-33.0); MEAN CORPUSCULAR HGB CONC 33.6 g/dL (32.0-36.0); MEAN CORPUSCULAR VOLUME 90.9 fL (79-99); MONOCYTES % (AUTO) 9.1 % (3.0-13.0); NEUTROPHILS % (AUTO) 52.2 % (40.0-77.0); PLATELET COUNT (AUTO) 122 K/uL (130-400); RED BLOOD CELL COUNT(AUTO) 4.75 MIL/uL (4.50-6.20); RED CELL DISTRIBUTION WIDTH 13.8 % (11.0-15.5); WHITE BLOOD COUNT (AUTO) 4.1 K/uL (4.8-10.8)
[2022-07-04 16:43] LABS: ALBUMIN 3.8 g/dL (3.5-5.0); CREATININE 1.1 mg/dL (0.5-1.5); POTASSIUM 4.4 mmol/L (3.5-5.1); T4 (THYROXINE) 7.2 ug/dL (4.7-13.3); THYROID STIMULATING HORMONE 2.99 uIU/mL (0.36-3.74); TOTAL PROTEIN, SERUM 7.3 g/dL (6.0-8.3)
[2022-07-04 16:55] LABS: HEMOGLOBIN A1C 7.9 % (4.0-6.0)
== END | disposition home or self-care (01) ==
LOC: LAB 08:06
PROVIDERS: ATTEND Internal Medicine Cardiovascular Disease
DX: I10 Essential (primary) hypertension (principal); E78.5 Hyperlipidemia, unspecified; Z79.899 Other long term (current) drug therapy
CPT/HCPCS: 36415; 80053; 80061; 83036; 84436; 84443; 84479; 85025

== ENCOUNTER → 2023-08-20 | Outpatient (CLI) | payer OTHER ==
[~2023-08-20] MED LIST changes: -GLIP5TAB11 PO; +GLIP5TAB15 PO
== END | disposition home or self-care (01) ==
LOC: RAH 08:01
PROVIDERS: ATTEND Podiatrist
DX: M19.072 Primary osteoarthritis, left ankle and foot (principal); M77.32 Calcaneal spur, left foot; M25.872 Other specified joint disorders, left ankle and foot; M84.375A Stress fracture, left foot, initial encounter for fracture; M79.89 Other specified soft tissue disorders
CPT/HCPCS: 73630

== ENCOUNTER → 2023-09-10 | Outpatient (CLI) | payer OTHER | END | disposition home or self-care (01) | LOC: RAH 08:16 | PROVIDERS: ATTEND Podiatrist | DX: M84.375A Stress fracture, left foot, initial encounter for fracture (principal); X58.XXXA Exposure to other specified factors, initial encounter; Y93.89 Activity, other specified; Y92.89 Other specified places as the place of occurrence of the external cause; Y99.8 Other external cause status | CPT/HCPCS: 73630 ==

== ENCOUNTER → 2023-10-07 | Outpatient (CLI) | payer OTHER | END | disposition home or self-care (01) | LOC: RAH 07:36 | PROVIDERS: ATTEND Podiatrist | DX: M84.375A Stress fracture, left foot, initial encounter for fracture (principal); M77.32 Calcaneal spur, left foot; M19.072 Primary osteoarthritis, left ankle and foot | CPT/HCPCS: 73630 ==

== ENCOUNTER → 2023-10-28 | Outpatient (CLI) | payer OTHER | END | disposition home or self-care (01) | LOC: RAH 08:05 | PROVIDERS: ATTEND Podiatrist | DX: M19.072 Primary osteoarthritis, left ankle and foot (principal); M84.375D Stress fracture, left foot, subsequent encounter for fracture with routine healing; M79.89 Other specified soft tissue disorders; M77.32 Calcaneal spur, left foot | CPT/HCPCS: 73630 ==

== ENCOUNTER → 2024-01-30 | Outpatient (CLI) | payer OTHER ==
[~2024-01-30] MED LIST changes: -ROSU5TAB12 PO; +ROSU5TAB43 PO
[2024-01-30 12:17] LABS: CREATININE 1.1 mg/dL (0.5-1.3); POTASSIUM 4.7 mmol/L (3.5-5.1)
== END | disposition home or self-care (01) ==
LOC: LAB 10:54
PROVIDERS: ATTEND Internal Medicine Cardiovascular Disease
DX: I10 Essential (primary) hypertension (principal)
CPT/HCPCS: 36415; 80048

== ENCOUNTER → 2024-02-03 | Outpatient (CLI) | payer OTHER ==
[~2024-02-03] MED LIST changes: +IOHEXOL 350 MG/ML 100ML INFUS..BTL IV ONE; +METOPROLOL TARTRATE 1 MG/ML 5ML VIAL IV ONE
== END | disposition home or self-care (01) ==
LOC: RAH 10:35
PROVIDERS: ATTEND Internal Medicine Cardiovascular Disease
DX: R07.9 Chest pain, unspecified (principal)
CPT/HCPCS: 75574; J3490; Q9967

== ENCOUNTER 2024-03-13 07:53 | Day surgery (SDC) | payer OTHER ==
[2024-03-10 12:33] VITALS: BP 112/69; PULSE 56; RESP 17; TEMP 98
[2024-03-10 12:33] LABS: BASOPHILS # (AUTO) 0.02 K/uL (0.00-0.20); BASOPHILS % (AUTO) 0.5 % (0.0-5.0); EOSINOPHILS # (AUTO) 0.13 K/uL (0.00-0.70); EOSINOPHILS % (AUTO) 3.1 % (0.0-8.0); HEMATOCRIT 39.3 % (42-54); IMMATURE GRANULOCYTE ABSOLUTE 0.02 K/uL (0-1); LYMPHOCYTES # (AUTO) 1.2 K/uL (1.0-4.8); LYMPHOCYTES % (AUTO) 29.2 % (21.0-51.0); MEAN CORPUSCULAR HEMOGLOBIN 30.9 pg (27.0-33.0); MEAN CORPUSCULAR HGB CONC 35.1 g/dL (32.0-36.0); MEAN CORPUSCULAR VOLUME 88.1 fL (79-99); MONOCYTES # (AUTO) 0.6 K/uL (0.1-1.0); MONOCYTES % (AUTO) 13.1 % (3.0-13.0); NEUTROPHILS # (AUTO) 2.3 K/uL (1.8-7.7); NEUTROPHILS % (AUTO) 53.6 % (40.0-77.0); PLATELET COUNT (AUTO) 165 K/uL (130-400); RED BLOOD CELL COUNT(AUTO) 4.46 MIL/uL (4.50-6.20); RED CELL DISTRIBUTION WIDTH 13.3 % (11.0-15.5); WHITE BLOOD COUNT (AUTO) 4.2 K/uL (4.8-10.8)
[2024-03-10 12:40] LABS: INR 0.97 (0.85-1.15); PROTHROMBIN TIME 10.5 SEC (9.6-11.6)
[2024-03-10 12:41] LABS: CREATININE 1.2 mg/dL (0.5-1.3); POTASSIUM 4.8 mmol/L (3.5-5.1)
[2024-03-10 12:42] LABS: PARTIAL THROMBOPLASTIN TIME 26.2 SEC (26.3-35.5)
[2024-03-10 13:14] LABS: B-TYPE NATRIURETIC PEPTIDE 59 pg/mL (0-100)
[2024-03-10 13:43] LABS: APPEARANCE,URINE CLEAR (CLEAR); BILIRUBIN,URINE NEGATIVE (NEGATIVE); COLOR,URINE YELLOW (YELLOW); GLUCOSE, URINE (UA) >=1000 mg/dL (NEGATIVE); KETONES,URINE NEGATIVE (NEGATIVE); LEUKOCYTE ESTERASE ,URINE NEGATIVE Leu/uL (NEGATIVE); NITRATE,URINE NEGATIVE (NEGATIVE); OCCULT BLOOD,URINE NEGATIVE (NEGATIVE); PH,URINE 6.5 (5.0-8.0); UROBILINOGEN,URINE 0.2 mg/dL (0.2-1.0)
[2024-03-10 13:44] LABS: ADD UA MICROSCOPIC YES; PROTEIN,URINE 300 mg/dL (NEGATIVE)
[2024-03-10 13:46] LABS: RBC,URINE 0-1 /HPF (0-1); WBC,URINE 0-1 /HPF (0-1)
[2024-03-13] VITALS (13 sets, daily range): BP systolic 124–145; BP diastolic 72–79; PULSE 51–61; RESP 14–17; TEMP 97.5–97.8
[~2024-03-13] VITALS: Ht 170.2 cm; Wt 83.0 kg
[~2024-03-13 07:53] MED LIST changes: -ACET-2743 PO; -AMLO-257 PO; +AMLO-258 PO; -ASPI-556 PO; +CLEAR EYES OU; -IOHEXOL 350 MG/ML 100ML INFUS..BTL IV ONE; -METO-409 PO; +METO25TA6 PO; -METOPROLOL TARTRATE 1 MG/ML 5ML VIAL IV ONE; +UMEC1DIS IH; -VIT1CAPS28 PO; +albuterol sulf IH
[2024-03-13] MEDS: 0.9%NACL 1000ML 1,000 ML IV ONE (09:16)
[2024-03-13] MEDS ORDERED: IOHEXOL 350 MG/ML 100ML INFUS..BTL IV ONE (09:53)
[2024-03-13] MEDS ORDERED: LIDOCAINE HCL 400MG/20ML VIAL ONE (09:53)
[2024-03-13] MEDS ORDERED: SODIUM BICARB 50MEQ 50ML VIAL 50 ML ONE (09:53)
[2024-03-13] MEDS ORDERED: niCARDIpine 25MG INJ IV ONE (09:53)
[2024-03-13] MEDS ORDERED: HEParin 10,000 UNIT/10ML (1,000 UNIT/ML) VIAL ONE (09:53)
[2024-03-13] MEDS ORDERED: HEParin-NS 1,000 UNIT/500 ML 1,000 ML IV ONE (09:54)
[2024-03-13] MEDS ORDERED: NITROGLYCERIN 50MG VIAL ONE (09:54)
[2024-03-13] MEDS ORDERED: MIDAZOLAM HCL 1 MG/ML 2ML VIAL ONE ×2 (09:57→10:23)
[2024-03-13] MEDS ORDERED: MEPERIDINE-PF 25 MG/ML SYG ONE ×2 (09:57→10:23)
[2024-03-13] MEDS ORDERED: ATROPINE 1MG SYG IVP ONE (10:23)
[2024-03-13] MEDS ORDERED: ASPIRIN 325MG EC TAB PO ONE (11:22)
[2024-03-13] MEDS ORDERED: cloPIDOgrel 300MG TAB ONE (11:22)
[2024-03-13] MEDS ORDERED: GLUCAGON 1MG KIT 1 MG ML IM PRN (12:00)
[2024-03-13] MEDS: 0.9%NACL 1000ML 1,000 ML IV SCH (12:00)
[2024-03-13] MEDS ORDERED: DEXTROSE 50%-WATER 50 ML DISP.SYRIN IV PRN (12:00)
[2024-03-13] MEDS ORDERED: CLOP-31 PO (15:27)
[2024-03-13] MEDS ORDERED: ASPI-1005 PO (15:27)
[2024-03-13] MEDS ORDERED: INSULIN humuLIN R 100 UNIT/ML 3ML SQ SCH (16:30)
== END 2024-03-13 15:30 | disposition home or self-care (01) ==
LOC: DAH 07:53
PROVIDERS: ATTEND Internal Medicine Cardiovascular Disease
DX: I25.118 Atherosclerotic heart disease of native coronary artery with other forms of angina pectoris (principal); I10 Essential (primary) hypertension; E11.9 Type 2 diabetes mellitus without complications; K21.9 Gastro-esophageal reflux disease without esophagitis; F41.9 Anxiety disorder, unspecified; M19.90 Unspecified osteoarthritis, unspecified site; E78.5 Hyperlipidemia, unspecified; Z88.1 Allergy status to other antibiotic agents; Z79.84 Long term (current) use of oral hypoglycemic drugs; Z79.01 Long term (current) use of anticoagulants; Z79.899 Other long term (current) drug therapy
CPT/HCPCS: 80048; 83880; 85025; 85610; 85730; 81001; 36415 ×2; 71045; 93005; 93458; 85347; 82948; C9600; Q9965 ×2; C1769 ×3; C1887; C1874 ×3; A4649; C1894; C1725; J3490 ×4; J7030; J1644 ×2; J2250 ×2; J2175 ×2; Q9967; A4215; A4222; A4221; A4663; A4216; A4606; C9601; A4223 ×3; 96360; 96361; 99156; 99157; J0461

== ENCOUNTER → 2024-11-10 | Outpatient (CLI) | payer OTHER ==
[~2024-11-10] MED LIST changes: +ASPI-1005 PO; +CLOP-31 PO; -ROSU5TAB43 PO; +ROSU5TAB51 PO
[2024-11-10] MEDS: REGADENOSON 0.4 MG/5 ML PF SYG IVP ONE (09:30)
== END | disposition home or self-care (01) ==
LOC: SHCH 07:31
PROVIDERS: ATTEND Internal Medicine Cardiovascular Disease
DX: R06.00 Dyspnea, unspecified (principal); R07.9 Chest pain, unspecified; R23.2 Flushing; R05.9 Cough, unspecified
CPT/HCPCS: 78452; 93017; J2785; A9500 ×2